=== PATIENT | female | born 1960 ===

== ENCOUNTER 2021-09-27 06:00 | Day surgery (SDC) | payer OTHER | END 2021-09-27 11:15 | disposition home or self-care (01) | LOC: AMB-ENDOS 06:00 | PROVIDERS: ATTEND Surgery | DX: K63.5 Polyp of colon (principal); K57.30 Diverticulosis of large intestine without perforation or abscess without bleeding; K91.841 Postprocedural hemorrhage of a digestive system organ or structure following other procedure ==

== ENCOUNTER 2021-12-09 17:17 | Inpatient (IN) | payer OTHER ==
[~2021-12-09] VITALS: Ht 165.1 cm; Wt 93.0 kg
== END 2021-12-14 14:42 | disposition home or self-care (01) | DRG 440 ==
LOC: ER 17:17 → SURH 22:51
PROVIDERS: ADMIT Internal Medicine; ATTEND Internal Medicine
PROC: BF37ZZZ Magnetic Resonance Imaging (MRI) of Pancreas (ICD-10-PCS; principal; 2021-12-11)
DX: K85.10 Biliary acute pancreatitis without necrosis or infection (principal); I10 Essential (primary) hypertension; E11.9 Type 2 diabetes mellitus without complications; Z79.4 Long term (current) use of insulin; R10.13 Epigastric pain; K21.9 Gastro-esophageal reflux disease without esophagitis; K44.9 Diaphragmatic hernia without obstruction or gangrene

== ENCOUNTER 2022-02-12 05:56 | Day surgery (SDC) | payer OTHER ==
[~2022-02-12] VITALS: Ht 174 cm; Wt 90.7 kg
[~2022-02-12 05:56] MED LIST: AVALIDE 300-121 EACH PO; ECOTRIN81 MG PO; METFORMIN HCL500 MG; NEXIUM40 M1 PO; PAXIL CR37.5 MG PO; TOPROL XL50 MG PO; ZOCOR20 MG PO; ZYRTEC10 M3 PO
[2022-02-12] MEDS ORDERED: ULTRACET PO (12:29)
[2022-02-12] MEDS ORDERED: CEFADROXIL500 MG PO (12:29)
== END 2022-02-12 16:15 | disposition home or self-care (01) ==
LOC: CIR.AMB 05:56
PROVIDERS: ATTEND Surgery
DX: K80.10 Calculus of gallbladder with chronic cholecystitis without obstruction (principal); K82.8 Other specified diseases of gallbladder; I10 Essential (primary) hypertension; F17.200 Nicotine dependence, unspecified, uncomplicated; Z79.82 Long term (current) use of aspirin; E11.9 Type 2 diabetes mellitus without complications; Z20.822 Contact with and (suspected) exposure to COVID-19